=== PATIENT | male | born 1930 | race Caucasian/White ===

== ENCOUNTER → 2019-02-22 15:32 | Outpatient (CLI) | payer MEDICARE, OTHER ==
[2014-01-27 11:23] VITALS: BMI 24.1
[~2019-02-22 15:32] MED LIST: ASPIRIN325 MG PO; CATAPRES-T1 PATCH.WK TD; CATAPRES0.2 MG PO; IMDUR60 MG PO; LOPRESSOR50 MG PO; PRINIVIL20 MG PO; TYLENOL 325 MG325 MG PO; ZOCOR20 MG PO
== END | disposition home or self-care (01) ==
LOC: D.LAB 15:32
PROVIDERS: ATTEND Urology
DX: N40.0 Benign prostatic hyperplasia without lower urinary tract symptoms (principal)

== ENCOUNTER 2019-04-15 05:22 | Day surgery (SDC) | payer MEDICARE, OTHER ==
[2019-04-13 09:48] LABS: CALC OSMOLALITY 266 mosm/kg (275-300); CALCIUM 9.2 mg/dL (8.5-10.1); CARBON DIOXIDE 31.2 mmol/L (21.0-32.0); CHLORIDE - SERUM 99 mmol/L (98-107); GLUCOSE 102 mg/dL (74-106); POTASSIUM - SERUM 5.3 mmol/L (3.5-5.1); SODIUM 134 mmol/L (136-145); UREA NITROGEN 11 mg/dL (7-18); eGFR NON AFRICAN AMERICAN 75 mL/min (90-120)
[2019-04-13 09:54] LABS: HEMATOCRIT 44.5 % (42.0-54.0); HEMOGLOBIN 15.5 g/dL (13.5-17.5); MCHC 34.8 g/dL (31.0-37.0); MCV 91.8 fL (80.0-100.0); MEAN PLATELET VOLUME 9.9 fL (7.4-10.4); RBC 4.85 10x6/uL (4.20-6.10); RDW 13.2 % (11.5-14.5); WBC 6.3 10x3/uL (4.8-10.8)
[~2019-04-15] VITALS: Ht 170.2 cm; Wt 77.1 kg
[~2019-04-15 05:22] MED LIST changes: -ASPIRIN325 MG PO; +ATIVAN1 MG PO; +CATAPRES0.1 MG PO; +FLUTICASONE PRO16 GM NASAL; +LOW DOSE ASPIRI81 M1 PO; +METOPROLOL TART50 MG PO
[2019-04-15 06:34] VITALS: BP 171/70; Ht 170.2 cm; Wt 77.1 kg
--- NOTE | 2019-04-15 08:35 | NUR ---
REC'D FROM RR. FAMILY AT BEDSIDE.
--- NOTE | 2019-04-15 09:05 | NUR ---
TOLERATED FL DIET. FAMILY AT BEDSIDE.
--- NOTE | 2019-04-15 09:13 | OP ---
PATIENT NAME: ROD FERRO MEDICAL RECORD: [id number] :32 LOCATION:D.OPS ADMISSION DATE: SURGEON: KRISSY PETER MD DATE OF OPERATION: 04/15/2019 SURGEON: Krissy Peter MD ANESTHESIA: TIVA by Evert Awad CRNA. 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 DENNIS shows a 50 gram prostate. IPSS is 15 and quality of life score is 4. PROCEDURES: UroLift times 4 implants. FINDINGS: Bilateral lateral lobe obstruction, no median lobe. Single ureteral orifices, no bladder tumors. BLOOD LOSS: Minimal. CLINICAL HISTORY: This is an 88-year-old male, who has obstructive voiding symptoms. He had a TURP 25 years ago where 120 grams of tissue were removed according to the patient. This was done in [place]. He currently has nocturia times 4-5, urinary urge incontinence and a good flow with dribbling postvoid. He has not been taking any BPH medications. He wishes to have the UroLift procedure done. He had 5 coronary artery stents with the last one being placed in 2011. He is not on anticoagulation. HE IS ALLERGIC TO AMLODIPINE AND HYTRIN. He was given Ancef lithopone charger to the OR. DESCRIPTION OF PROCEDURE: The patient was given IV sedation. He was then placed into the lithotomy position and prepped and draped. The UroLift scope was introduced. Findings are as outlined above. There are no urethral strictures in the penile urethra. We placed the first 2 implants 1.5 cm distal to the bladder neck at the anterolateral sulcus of the lateral lobes. One implant was placed on each side. The next 2 implants were placed at the level of the verumontanum on the anterolateral sulcus of the lateral lobes. Again, 1 implant was placed on each side. The urethral channel is now wide open in the prostatic urethra. The bladder was left partly full, so that we can perform a voiding trial today. I will see him in followup in 2 weeks' time. TRANSINT:[id number] Voice Confirmation ID: [id number] DOCUMENT ID: [id number] KRISSY PETER MD at 0913 CC: [id number] DICTATION DATE: 04/15/19811 CONSUMER RELATIONS SPECIALIST: 04/15/19 08 [facility] [address] [place] [address]
--- NOTE | 2019-04-15 09:14 | NUR ---
UP TO BATHROOM. VOIDED WITHOUT DIFFICULTY.
--- NOTE | 2019-04-15 09:35 | NUR ---
IV DC'D WITH CATHETER INTACT. WRITTEN AND VERBAL DC INST, GIVEN TO PT. VERBALIZED UNDERSTANDING.
--- NOTE | 2019-04-15 09:55 | NUR ---
DC'D HOME WITH FAMILY VIA PRIVATE VEHICLE, STABLE AT TIME OF DC.
== END 2019-04-15 09:55 | disposition home or self-care (01) ==
LOC: D.OPS 05:22 → D.PAN 07:30 → D.OPS 07:30
PROVIDERS: Anesthesiology; ATTEND Urology
DX: N40.1 Benign prostatic hyperplasia with lower urinary tract symptoms (principal); N13.8 Other obstructive and reflux uropathy; R35.1 Nocturia; N39.41 Urge incontinence; Z01.812 Encounter for preprocedural laboratory examination

== ENCOUNTER 2019-04-20 22:51 | Emergency (ER) | payer MEDICARE, OTHER ==
[~2019-04-20] VITALS: Ht 170.2 cm; Wt 75.0 kg
[2019-04-20 22:53] VITALS: Ht 170.2 cm; Wt 75.0 kg
[2019-04-20 23:15] LABS: BASOPHILS 0.3 % (0-2); EOSINOPHILS 1.3 % (0-7); HEMATOCRIT 44.7 % (42.0-54.0); HEMOGLOBIN 15.7 g/dL (13.5-17.5); IMMATURE GRANULOCYTES 0.3 % (0-5); LYMPHOCYTES 29.6 % (15-50); MCH 31.8 pg (26.0-34.0); MCHC 35.1 g/dL (31.0-37.0); MCV 90.7 fL (80.0-100.0); MEAN PLATELET VOLUME 10.2 fL (7.4-10.4); MONOCYTES 10.6 % (2-11); NEUTROPHILS 57.9 % (40-80); PLATELET COUNT 204 10x3/uL (130-400); RBC 4.93 10x6/uL (4.20-6.10); RDW 13.3 % (11.5-14.5); WBC 6.8 10x3/uL (4.8-10.8)
[2019-04-20 23:24] LABS: APPEARANCE CLOUDY (CLEAR); BILIRUBIN NEGATIVE (NEGATIVE); COLOR RED (YELLOW); GLUCOSE NEGATIVE (NEGATIVE); KETONE NEGATIVE (NEGATIVE); NITRITE NEGATIVE (NEGATIVE); PROTEIN 3+ mg/dL (NEGATIVE); UROBILINOGEN NORMAL (NORMAL)
[2019-04-20 23:26] LABS: BACTERIA FEW /hpf (NONE SEEN); EPITHELIAL CELLS NSEEN /hpf (0-5); RED CELLS - URINE >50 /hpf (0-5); WHITE CELLS - URINE NSEEN /hpf (0-5)
[2019-04-20 23:28] LABS: ALBUMIN 4.1 g/dL (3.4-5.0); ALKALINE PHOSPHATASE 54 U/L (46-116); ALT (SGPT) 24 U/L (10-68); BILIRUBIN - TOTAL 0.88 mg/dL (0.2-1.3); CALC OSMOLALITY 269 mosm/kg (275-300); CALCIUM 9.4 mg/dL (8.5-10.1); CARBON DIOXIDE 31.6 mmol/L (21.0-32.0); CHLORIDE - SERUM 97 mmol/L (98-107); CREATININE - SERUM 0.9 mg/dL (0.6-1.3); GLUCOSE 122 mg/dL (74-106); POTASSIUM - SERUM 4.7 mmol/L (3.5-5.1); PROTEIN - SERUM 7.5 g/dL (6.4-8.2); SODIUM 134 mmol/L (136-145); UREA NITROGEN 14 mg/dL (7-18); eGFR NON AFRICAN AMERICAN 85 mL/min (90-120)
[2019-04-21 01:15] VITALS: BP 227/97
== END 2019-04-21 02:01 | disposition home or self-care (01) ==
LOC: D.ER 22:51
PROVIDERS: Family Medicine
DX: R33.9 Retention of urine, unspecified (principal); R31.9 Hematuria, unspecified; I10 Essential (primary) hypertension